=== PATIENT | male | born 1985 | race Two or more races ===

== ENCOUNTER 2023-10-13 19:58 | Emergency (ER) | payer MEDICAID ==
[~2023-10-13] VITALS: Ht 177.8 cm; Wt 122.0 kg
[2023-10-13 20:24] LABS: Urine WBC None Seen /hpf (0 - 3)
[2023-10-13 21:10] LABS: Urine Bacteria NONE SEEN /hpf (None Seen); Urine Blood Negative /uL (Negative); Urine Clarity Clear (Clear); Urine Color Colorless (Yellow); Urine Protein, UAD Negative (Negative); Urine Specific Gravity 1.014 (1.001-1.035); Urine Urobilinogen Normal (Negative); Urine pH 5.5 (5.0-8.0)
[2023-10-14 00:15] VITALS: BP 128/82; PULSE 68; RESP 16; TEMP 97.8; O2SAT 100
== END 2023-10-14 00:39 | disposition home or self-care (01) ==
LOC: ER 19:58
DX: A63.0 Anogenital (venereal) warts (principal); L91.8 Other hypertrophic disorders of the skin; L98.8 Other specified disorders of the skin and subcutaneous tissue
CPT/HCPCS: 81001